=== PATIENT | female | born 1990 | race Caucasian/White ===

== ENCOUNTER 2017-11-11 13:32 | Emergency (ER) | payer SELFPAY ==
[2017-11-11 15:50] VITALS: BP 113/53
--- NOTE | 2017-11-11 15:52 | ER Document Report ---
HPI - HPI Pain Level: 5 Context: pt c/o burning painful rash between 4th and 5th right toes x several weeks, worse x 2 days Associated Symptoms: None Exacerbated by: Walking Relieved by: Denies Similar symptoms previously: No Recently seen / treated by doctor: No - ROS Systems Reviewed and Negative: Yes All other systems reviewed and negative Past Medical History - General Information source: Patient - Social History Smoking Status: Never Smoker Frequency of alcohol use: None Drug Abuse: None Lives with: Family Family History: Reviewed & Not Pertinent - Medical History Medical History: Negative Vertical Provider Document - HEENT HEENT: Atraumatic, PERRLA - NECK Neck: Normal Inspection, Supple - RESPIRATORY Respiratory: Breath Sounds Normal, No Respiratory Distress O2 Sat by Pulse Oximetry: 100 - CARDIOVASCULAR Cardiovascular: Regular Rate, Regular Rhythm - NEURO Level of Consciousness: Awake, Alert, Appropriate - DERM Integumentary: Rash - + maceration between 4th and 5th right toes. no secondary infection. no lymphangitis Course - Vital Signs Vital signs: Temp Pulse Resp BP Pulse Ox 98.6 F 75 16 113/63 100 11/11/17 14:17 11/11/17 14:17 11/11/17 14:17 11/11/17 14:17 11/11/17 14:17 Discharge - Discharge Clinical Impression: Tinea pedis Qualifiers: Laterality: right Qualified Code(s): B35.3 - Tinea pedis Condition: Stable Disposition: HOME, SELF-CARE Instructions: Topical Antifungal ([facility]) Additional Instructions: keep feet as dry as possible change socks often antifungal cream as prescribed use antifungal spray in between applications follow up with primary care if symptoms persist Prescriptions: Clotrimazole/Betamethasone Dip [Lotrisone Cream 15 gm] 1 applic TOP BID #30 g Forms: Special Work Note
== END 2017-11-11 15:59 | disposition home or self-care (01) ==
LOC: ER 13:32
DX: B35.3 Tinea pedis (principal)
CPT/HCPCS: 99282